=== PATIENT | male | born 1960 | race Caucasian/White ===

== ENCOUNTER 2019-03-19 16:09 | Emergency (ER) | payer OTHER ==
[2019-03-19 16:21] VITALS: BP 128/82
--- NOTE | 2019-03-19 16:32 | UC ---
Eye Complaint HPI - HPI Summary HPI Summary: 58-year-old male who started having some left eye redness with purulent drainage today. He denies any injury to his eye nor does he feel any sensation of foreign body. He does not wear contact lenses. - History of Current Complaint Chief Complaint: UCEye Stated Complaint: EYE IRRITATION Time Seen by Provider: 03/19/19 16:14 Hx Obtained From: Patient Onset/Duration: Gradual Onset Timing: Constant Severity Initially: Mild Severity Currently: Mild Pain Intensity: 1 Location of Injury: Other Aggravating Factor(s): Nothing Alleviating Factor(s): Nothing Associated Signs And Symptoms: Positive: Drainage (Purulent) - Allergies/Home Medications Allergies/Adverse Reactions: Allergies Allergy/AdvReac Type Severity Reaction Status Date / Time cefadroxil Allergy Rash Verified 03/19/19 16:24 ciprofloxacin Allergy Rash Verified 03/19/19 16:24 Home Medications: Home Medications Hyoscyamine Sulfate [Levsin] 0.125 mg PO Q4H PRN 03/19/19 [History Confirmed ] Sinequan 10 mg PO BEDTIME 03/19/19 [History Confirmed 03/19/19] metroNIDAZOLE [Metrocream] 0.75 % TOPICAL BID 03/19/19 [History Confirmed ] PMH/Surg Hx/FS Hx/Imm Hx Previously Healthy: Yes - Surgical History Surgical History: Yes Surgery Procedure, Year, and Place: sigmoidectomy, tonsillectomy - Family History Known Family History: Positive: Non-Contributory - Social History Occupation: Employed Full-time Alcohol Use: None Substance Use Type: None Smoking Status (MU): Never Smoked Tobacco Review of Systems All Other Systems Reviewed And Are Negative: Yes Eyes: Positive: Drainage, Eye Redness - Left eye redness with purulent drainage today throughout the day. Is Patient Immunocompromised?: No Physical Exam Triage Information Reviewed: Yes Appearance: Well-Appearing, No Pain Distress, Well-Nourished Vital Signs: Initial Vital Signs Temp 97.8 F 03/19/19 16:18 Pulse 78 03/19/19 16:18 Resp 16 03/19/19 16:18 BP 128/82 03/19/19 16:18 Pulse Ox 100 03/19/19 16:18 Vital Signs Reviewed: Yes Eyes: Positive: Conjunctiva Inflamed - Colleen, EOMI, minimal yellow purulent drainage inner canthus of left eye, conjunctiva and sclera injected. ENT: Positive: Pharynx normal, TMs normal, Uvula midline Neck: Positive: Supple, Nontender, No Lymphadenopathy Musculoskeletal Exam: Normal Neurological Exam: Normal Psychological Exam: Normal Skin Exam: Normal Eye Complaint Course/Dx - Course Course Of Treatment: I'm going to treat the patient for conjunctivitis. He is to practice good handwashing. He is to follow-up with the therapeutic consultant in 3 or 4 days if no improvement, or sooner if worsening symptoms. - Differential Dx/Diagnosis Provider Diagnosis: Left conjunctivitis Discharge ED - Sign-Out/Discharge Documenting (check all that apply): Patient Departure All imaging exams completed and their final reports reviewed: No Studies - Discharge Plan Condition: Good Disposition: HOME Prescriptions: Tobramycin 0.3% OPHTH.KIRSTY* 1 drop LEFT EYE Q4H 7 Days #1 btl Patient Education Materials: Conjunctivitis (ED) Referrals: No Primary Care Phys,NOPCP [Primary Care Provider] - Additional Instructions: Follow-up with your primary care provider or an therapeutic consultant if no improvement in 3 or 4 days. Good handwashing if you touch her face or eyes. - Billing Disposition and Condition Condition: GOOD Disposition: Home - Attestation Statements Provider Attestation: Per institutional requirements, I have reviewed the chart, however, I was not consulted specifically or made aware of this patient by the midlevel provider. I did not personally evaluate, interact with , or disposition this patient.
== END 2019-03-19 16:49 | disposition home or self-care (01) ==
LOC: UCEAST 16:09
DX: H10.9 Unspecified conjunctivitis (principal); Z88.1 Allergy status to other antibiotic agents
CPT/HCPCS: 99202; G0463